=== PATIENT | female | born 1955 | race Caucasian/White ===

== ENCOUNTER 2020-11-11 17:27 | Outpatient (REF) | payer OTHER, SELFPAY ==
[2020-11-11 18:51] LABS: Prothrombin Time 9.8 sec (9.3-11.0)
[2020-11-11 18:59] LABS: HCT 45.2 % (36.0-46.0); HGB 14.4 g/dL (11.2-15.7); MCHC 31.9 % (32.0-36.0); MCV 94.2 fL (80-95); MPV 9.8 fL (8.0-11.0); Platelet Count 311 10^3/uL (130-400); RDW 13.1 % (11.7-14.6); RDW-SD 45.9 fL
[2020-11-11 19:03] LABS: ALT 46 U/L (14-59); AST 23 U/L (15-37); Albumin 4.3 g/dL (3.4-5.0); Alkaline Phosphatase 101 U/L (46-116); Anion Gap 11.4 mmol/L (3-11); BUN 17 mg/dL (7-18); Bilirubin, Total 0.5 mg/dL (0.2-1.0); CO2 26.6 mmol/L (21.0-32.0); CREATININE 0.8 mg/dL (0.55-1.02); Calcium 9.5 mg/dL (8.5-10.1); Chloride 103 mmol/L (98-107); Glucose 88 mg/dL (74-106); LDL CHOLESTEROL 137 mg/dL (<100); Potassium 4.4 mmol/L (3.5-5.1); Sodium 141 mmol/L (136-145); TSH 2.36 uIU/mL (0.36-3.74); Total Protein 7.5 g/dL (6.4-8.2)
== END 2020-11-11 17:28 | disposition home or self-care (01) ==
LOC: NCHCN 17:27
PROVIDERS: PCP Nurse Practitioner Family; Visit Provider Internal Medicine
DX: E78.5 Hyperlipidemia, unspecified (principal); R91.1 Solitary pulmonary nodule; R07.89 Other chest pain
CPT/HCPCS: 80053; 83721; 85027; 84443; 85610

== ENCOUNTER 2022-03-22 18:21 | Outpatient (REF) | payer OTHER, SELFPAY ==
[2022-03-22 19:11] LABS: Calculated LDL 184 mg/dL (<100); Cholesterol 283 mg/dL (<200); HDL Cholesterol 60 mg/dL (40-60); Triglyceride 199 mg/dL (<150)
== END 2022-03-22 18:22 | disposition home or self-care (01) ==
LOC: NCHCN 18:21
PROVIDERS: PCP Nurse Practitioner Family; Visit Provider Physician Assistant
DX: E78.5 Hyperlipidemia, unspecified (principal)
CPT/HCPCS: 80061

== ENCOUNTER 2022-06-29 17:28 | Outpatient (REF) | payer BC, SELFPAY ==
[2022-06-29 19:06] LABS: ALT 29 U/L (14-59); AST 21 U/L (15-37); Albumin 4.3 g/dL (3.4-5.0); Alkaline Phosphatase 87 U/L (46-116); Bilirubin, Direct 0.1 mg/dL (0.0-0.2); Bilirubin, Total 0.5 mg/dL (0.2-1.0); Total Protein 7.7 g/dL (6.4-8.2)
[2022-06-29 19:19] LABS: Calculated LDL 132 mg/dL (<100); Cholesterol 228 mg/dL (<200); HDL Cholesterol 63 mg/dL (40-60); Triglyceride 166 mg/dL (<150)
== END 2022-06-29 17:29 | disposition home or self-care (01) ==
LOC: NCHCN 17:28
PROVIDERS: PCP Nurse Practitioner Family; Visit Provider Physician Assistant
DX: E78.5 Hyperlipidemia, unspecified (principal)
CPT/HCPCS: 80061; 80076

== ENCOUNTER 2022-09-20 09:32 | Outpatient (REF) | payer BC, SELFPAY | END 2022-09-20 09:33 | disposition home or self-care (01) | LOC: NCHCN 09:32 | PROVIDERS: PCP Nurse Practitioner Family; Visit Provider Physician Assistant | DX: R30.0 Dysuria (principal) | CPT/HCPCS: 87077; 87086; 87186 ==

== ENCOUNTER 2022-10-30 12:31 | Outpatient (REF) | payer BC, SELFPAY ==
[2022-10-30 19:35] LABS: ALT 27 U/L (14-59); AST 16 U/L (15-37); Albumin 4.3 g/dL (3.4-5.0); Alkaline Phosphatase 90 U/L (46-116); Bilirubin, Direct 0.1 mg/dL (0.0-0.2); Bilirubin, Total 0.5 mg/dL (0.2-1.0); Total Protein 7.5 g/dL (6.4-8.2)
[2022-10-30 19:47] LABS: Calculated LDL 95 mg/dL (<100); Cholesterol 184 mg/dL (<200); HDL Cholesterol 61 mg/dL (40-60); Triglyceride 140 mg/dL (<150)
== END 2022-10-30 12:32 | disposition home or self-care (01) ==
LOC: NCHCN 12:31
PROVIDERS: PCP Nurse Practitioner Family; Visit Provider Physician Assistant
DX: E78.5 Hyperlipidemia, unspecified (principal)
CPT/HCPCS: 80061; 80076

== ENCOUNTER 2023-10-17 09:11 | Outpatient (REF) | payer BC, SELFPAY ==
[2023-10-17 19:08] LABS: Hemoglobin A1C 5.5 % (<5.7)
[2023-10-17 19:29] LABS: ALT 31 U/L (14-59); AST 23 U/L (15-37); Alkaline Phosphatase 85 U/L (46-116); Anion Gap 6.2 mmol/L (3-11); BUN 14 mg/dL (7-18); Bilirubin, Total 0.5 mg/dL (0.2-1.0); CO2 30.8 mmol/L (21.0-32.0); CREATININE 0.8 mg/dL (0.55-1.02); Calcium 9.6 mg/dL (8.5-10.1); Chloride 106 mmol/L (98-107); Estimated GFR 80.71 (mL/min/1.73m2); Glucose 110 mg/dL (74-106); Potassium 4.8 mmol/L (3.5-5.1); Sodium 143 mmol/L (136-145); Total Protein 7.4 g/dL (6.4-8.2); Vitamin D 25 Total 21.5 ng/mL (30-100)
== END 2023-10-17 09:12 | disposition home or self-care (01) ==
LOC: NCHCN 09:11
PROVIDERS: PCP Nurse Practitioner Family; Visit Provider Physician Assistant
DX: Z13.1 Encounter for screening for diabetes mellitus (principal); E78.5 Hyperlipidemia, unspecified; M81.0 Age-related osteoporosis without current pathological fracture
CPT/HCPCS: 80053; 82306; 83036

== ENCOUNTER 2024-12-18 16:08 | Outpatient (REF) | payer OTHER, SELFPAY ==
[2024-12-18 19:35] LABS: HCT 45.3 % (36.0-46.0); HGB 14.3 g/dL (11.2-15.7); MCH 29.7 pg (27.0-33.0); MCHC 31.6 % (32.0-36.0); MCV 94 fL (80-95); MPV 10.0 fL (8.0-11.0); Platelet Count 343 10^3/uL (130-400); RBC 4.82 10^6/uL (3.93-5.22); RDW 13.0 % (11.7-14.6); RDW-SD 45.1 fL; WBC 9.65 10^3/uL (4.4-10.8)
[2024-12-18 19:55] LABS: ALT 30 U/L (14-59); AST 25 U/L (15-37); Albumin 4.0 g/dL (3.4-5.0); Alkaline Phosphatase 90 U/L (46-116); Anion Gap 7.5 mmol/L (3-11); BUN 9 mg/dL (7-18); Bilirubin, Total 0.4 mg/dL (0.2-1.0); CO2 29.5 mmol/L (21.0-32.0); Calcium 9.4 mg/dL (8.5-10.1); Chloride 105 mmol/L (98-107); Estimated GFR 94.15 (mL/min/1.73m2); Glucose 100 mg/dL (74-106); Potassium 4.4 mmol/L (3.5-5.1); Sodium 142 mmol/L (136-145); Total Protein 7.5 g/dL (6.4-8.2)
== END 2024-12-18 16:09 | disposition home or self-care (01) ==
LOC: NCHCN 16:08
PROVIDERS: PCP Nurse Practitioner Family; Visit Provider Physician Assistant
DX: R10.11 Right upper quadrant pain (principal)
CPT/HCPCS: 80053; 85027

== ENCOUNTER 2025-04-12 11:07 | Outpatient (REF) | payer OTHER, SELFPAY ==
[2025-04-12 20:07] LABS: ALT 24 U/L (10-49); AST 23 U/L (<34); Albumin 4.5 g/dL (3.2-5.0); Alkaline Phosphatase 91 U/L (46-116); Anion Gap 5.9 mmol/L (3-11); BUN 13 mg/dL (9-23); Bilirubin, Total 0.40 mg/dL (0.2-1.2); CO2 28.1 mmol/L (20.0-31.0); Calcium 9.5 mg/dL (8.3-10.6); Chloride 108 mmol/L (98-107); Glucose 102 mg/dL (74-106); Magnesium 1.9 mg/dL (1.6-2.6); Potassium 4.3 mmol/L (3.5-5.1); Sodium 142 mmol/L (136-145); Total Protein 7.2 g/dL (5.7-8.2)
== END 2025-04-12 11:08 | disposition home or self-care (01) ==
LOC: NCHCN 11:07
PROVIDERS: PCP Nurse Practitioner Family; Visit Provider Physician Assistant
DX: M81.0 Age-related osteoporosis without current pathological fracture (principal)
CPT/HCPCS: 80053; 83735